=== PATIENT | female | born 1940 | race Caucasian/White ===

== ENCOUNTER 2017-08-10 12:34 | Inpatient (IN) | payer MEDICARE, OTHER ==
--- NOTE | 2017-08-03 15:19 | HP ---
CC: Kiko Weller DO * PREOPERATIVE HISTORY AND PHYSICAL: DATE OF ADMISSION: 08/10/17 This patient is scheduled for same-day surgery admission by Dr. Hensley on 08/10/17. ATTENDING SURGEON: Wilbur Hensley MD * (dictated by Mao Hoyos NP). CHIEF COMPLAINT: Umbilical hernia. HISTORY OF PRESENT ILLNESS: The patient is a 76-year-old female known to Dr. 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 She was doing well until about 1 month ago, when she noted a hard lump in the belly button area when she woke up in the morning. She described it as "about the size of a bar of soap." Subsequently, she had a followup with her primary care provider and was diagnosed with a hernia. She reports eating and drinking without any nausea or vomiting. She denies any constipation. In general, she is physically active doing water exercises 3 times a week and walking on alternate days. Dr. Hensley examined the patient and notes a well-healed upper midline scar with a reducible ventral incisional hernia supraumbilically with a defect that measures approximately 6 x 10 cm. It was associated with minimal tenderness. Dr. Hensley discussed the findings with the patient and has recommended laparoscopic/open combined approach for repair of the ventral incisional hernia with mesh. He explained to the patient this will allow intraperitoneal placement of the mesh and closure of the defect primarily. Dr. Hensley discussed the relevant risks, benefits, and alternatives, and today I reviewed the typical same-day surgery with typically an overnight stay and the expected postoperative care and recovery. The patient has had a chance to ask questions and stated that she understands the information and is satisfied with the answers given to her questions. She will sign surgical consent on the day of surgery. PAST MEDICAL HISTORY: Cecal volvulus; hypertension; osteoarthritis; anxiety and depression. PAST SURGICAL HISTORY: Right hemicolectomy with primary anastomosis for cecal volvulus in August [address] Hensley; tonsillectomy in childhood. MEDICATIONS: 1. Potassium, dose unspecified, 1 tablet daily. 2. Magnesium oxide supplement 1 tablet daily. 3. Super B-complex 1 tablet daily. 4. Amitriptyline 75 mg daily at bedtime. 5. Xanax 0.5 mg t.i.d. p.r.n. ALLERGIES: ALTEPLASE caused severe edema. FAMILY HISTORY: No known anesthesia complications, bleeding tendencies, or clotting disorders. SOCIAL HISTORY: She is ; she has never been a smoker. She drinks on average 14 glasses of wine per week and denies the use of other substances. She exercises regularly. REVIEW OF SYSTEMS: Constitutional: Denies any fevers, chills, excessive fatigue. Endocrine: No diabetes or thyroid disease. Hematologic: No easy bruising or bleeding. No previous blood transfusions. Respiratory: No dyspnea on exertion. No chronic cough. Cardiovascular: No anginal chest pain or palpitations. No history of deep vein thrombosis, but she did have a pulmonary embolism about 10 years ago. Gastrointestinal: No nausea, vomiting, diarrhea or constipation. No change in bowel habits. No heartburn. Genitourinary: No dysuria. Musculoskeletal: No joint pain or back pain. Neurologic: No headache or blurred vision or areas of focal weakness or numbness. General: The patient denies any previous anesthesia complications. PHYSICAL EXAMINATION GENERAL SURVEY: The patient is a 76-year-old female, well developed, well nourished, in no acute distress. VITAL SIGNS: Height 64 inches, weight 120 pounds, body mass index 20.6. Blood pressure 108/70, pulse 78 and regular, respiratory rate 16, temperature 97.1 tympanic. HEENT: Benign. NECK: Supple. No cervical lymphadenopathy. No thyromegaly. LUNGS: Breath sounds bilaterally clear and equal. HEART: Regular rate and rhythm. No murmurs or rubs appreciated. ABDOMEN: Examined standing and supine; well-healed upper midline scar; active bowel sounds. There is a reducible ventral incisional hernia supraumbilically with a defect that measures 6 cm x 10 cm. There is minimal tenderness. There are no other palpable masses or organomegaly. PELVIC AND RECTAL EXAMS: Deferred. EXTREMITIES: Warm without edema or skin ulcerations. NEUROLOGIC: Alert and oriented x3, steady gait. BACK: No CVA tenderness. SKIN: Warm, dry, and intact. IMPRESSION: Ventral incisional hernia. PLAN: Same-day surgery admission with overnight extension to Dr. Hensley' service on 08/10/17, for laparoscopic/open repair ventral incisional hernia with mesh. MAO HOYOS, COMPLIANCE EXAMINER [id number]/[facility] #: [id number] JESSICA
[~2017-08-10 12:34] MED LIST: Buffered Lidocaine 0.9% SYRIN* 5 ML/SYR SYRINGE INTRADERM ONE; Heparin VIAL(*) 5000 UNITS/ML VIAL (FIVE THOUSAND) ONE; Sodium Citrate/Citric Acid* 15 ML UDC ONE; Sodium Citrate/Citric Acid* 15 ML UDC PO ONE
[2017-08-10] MEDS ORDERED: Buffered Lidocaine 0.9% SYRIN* 5 ML/SYR SYRINGE ONE (12:35)
[2017-08-10] MEDS ORDERED: ceFAZolin 2 GM PREMIX (*) 50 ML IVPB ONE (12:35)
[2017-08-10] MEDS ORDERED: Bupivacaine 0.5% SDV PF* 30 ML VIAL ONE (15:47)
[2017-08-10] MEDS ORDERED: fentaNYL* 50 MCG/ML 2 ML VIAL (100 MCG VIAL) ONE ×3 (16:01→19:46)
[2017-08-10] MEDS ORDERED: Propofol* 10 MG/ML 20 ML BTL IV PUSH ONE ×2 (16:01→17:24)
[2017-08-10] MEDS ORDERED: Cisatracurium* 2 MG/ML MDV 5 ML ONE (16:01)
[2017-08-10] MEDS ORDERED: Lidocaine 2% PF * 5 ML VIAL ONE (16:01)
[2017-08-10] MEDS ORDERED: EPHEDrine (Pressors)* 50 MG/ML VIAL ONE (17:07)
[2017-08-10] MEDS ORDERED: Labetalol IV* 5 MG/ML 20 ML VIAL ONE ×2 (17:07→20:13)
[2017-08-10] MEDS ORDERED: Neostigmine Methylsulfate* 2 MG/2 ML SYRINGE ONE (18:05)
[2017-08-10] MEDS ORDERED: Glycopyrrolate IV* 0.2 MG/ML 1 ML VIAL ONE (18:05)
[2017-08-10] MEDS ORDERED: HYDROmorphone INJ* 1 MG/ML CARPUJECT SYRINGE IV PRN (18:26)
[2017-08-10] MEDS ORDERED: Docusate CAP* 100 MG PO PRN (18:26)
[2017-08-10] MEDS ORDERED: Acetaminophen TAB* 325 MG PO PRN (18:26)
[2017-08-10] MEDS ORDERED: Ondansetron INJ* 2 MG/ML VIAL IV PRN (18:26)
[2017-08-10] MEDS ORDERED: Zolpidem TAB* 5 MG PO PRN (18:31)
--- NOTE | 2017-08-10 18:32 | SURGPN ---
Brief Operative Note - Surgery Procedures: Pre-op dx: Ventral incisional hernia Post-op dx: same Procedure: Laparoscopic/open repair of ventral incisional hernia with mesh Anesthesia: GEN Huber Guardado Surgeon: Shellie Assist: Reinaldo MONTENEGRO EBL: 100 mL Specimen: none Fluids: NS 1L Drains: Mack Findings: none
[2017-08-10] MEDS: fentaNYL* 50 MCG/ML 2 ML VIAL (100 MCG VIAL) IV PRN ×6 (18:43→20:43)
[2017-08-10] MEDS ORDERED: HYDROmorphone INJ* 1 MG/ML CARPUJECT SYRINGE ONE (18:52)
[2017-08-10] MEDS: Amitriptyline TAB* 25 MG PO SCH (22:18)
[2017-08-10] MEDS: oxyCODONE/Acetamin 5/325 MG* TAB PO PRN (22:18)
[2017-08-10] MEDS: ALPRAZolam TAB* 0.5 MG PO PRN (23:23)
[2017-08-11] MEDS: oxyCODONE/Acetamin 5/325 MG* TAB PO PRN ×4 (02:26→19:38)
[2017-08-11] MEDS: Heparin VIAL(*) 5000 UNITS/ML VIAL (FIVE THOUSAND) SUBCUT SCH ×3 (06:32→21:58)
[2017-08-11] MEDS: ALPRAZolam TAB* 0.5 MG PO PRN ×3 (06:32→20:37)
[2017-08-11] MEDS: Omeprazole CAP* 20 MG PO SCH (06:32)
--- NOTE | 2017-08-11 07:03 | OP ---
CC: Kiko Weller DO * DATE OF OPERATION: 08/10/17 - ROOM #339 DATE OF : 44 SURGEON: Dr. Hensley. SENIOR ANALYTICAL CHEMIST: LORRAINE Pena ANESTHESIOLOGIST: Porfirio Guardado DO ANESTHESIA: General endotracheal. PRE-OP DIAGNOSIS: Ventral incisional hernia. POST-OP DIAGNOSIS: Ventral incisional hernia. OPERATIVE PROCEDURE: Open primary repair of ventral incisional hernia with laparoscopic repair of incisional hernia with mesh. ESTIMATED BLOOD LOSS: 100 mL. IV FLUIDS: 1 L of crystalloids. SPECIMENS: None. DRAINS: None. COMPLICATIONS: The instrument, needle, and sponge counts were correct. DESCRIPTION OF PROCEDURE: The patient was brought to the operating room and placed on the table supine. Sequential compression devices were placed in both lower extremities and general anesthesia was administered. She was administered appropriate antibiotics. She was positioned and padded appropriately. She was prepped and draped in the usual sterile fashion and a time-out was performed. Local anesthetic was infiltrated into the skin and soft tissue prior to making each incision. A midline incision was created through the previous scar and the peritoneal cavity was entered. The hernia sac was excised. The hernia defect measured approximately 6 cm transversely and 10 cm cephalocaudad. Lysis of adhesions was performed to free the omentum from the abdominal wall circumferentially and as well the hernia was located in the epigastrium approximately 3 cm from the xiphoid process. The falciform ligament was identified in the upper portion of the incision. The ligamentum teres was divided between Pamela clamps and ligated with 2-0 Polysorb. The edges of the facia were identified and the subcutaneous tissues were elevated off of the fascia on each side. The fascial edges were approximated in the midline with interrupted #1 Surgipro sutures with wapzan-ta-gjxnu sutures. Prior to tying these down, a hernia patch was selected. A 10 x 15 Ventralight mesh was placed into the peritoneal cavity and then the fascial sutures were tied down. A 5-mm trocar was between, the fascia were closed with sutures and then xdojvo-ki-znoqs insufflated into the peritoneal cavity and laparoscope introduced and then three 5-mm ports were placed, 1 in the right mid abdomen, 1 in the left mid abdomen, and 1 in the lower midline. Next, the tubing for the mesh echo positioning system was drawn and the echo positioning system was inflated and used to position the mesh to cover the area of the hernia with good overlap in all sides. The mesh was then secured with the capture tacker using a double-crown technique and attacking the mesh at 1 cm interval circumferentially. The echo positioning system was removed without difficulty through the inferior incision. Inspection revealed excellent hemostasis and excellent coverage of the closed mesh. Ports removed under direct visualization, carbon dioxide was released. The midline wound was irrigated and hemostasis was assured. A couple of quilting sutures were placed on each side to decrease the space and the 3-0 Polysorb was used for this. The 3-0 Polysorb was also used to approximate the subcutaneous tissue in the midline. [place] were then used to close the skin at all the incisions and dressings applied. The patient tolerated the procedure well and was extubated and transferred to Recovery in stable condition. [id number]/[facility] #: [id number] MTDD
[2017-08-11] MEDS ORDERED: oxyCODONE TAB* 5 MG TAB PO PRN (08:11)
--- NOTE | 2017-08-11 08:11 | PN ---
Progress Note - Progress Note Date of Service: 08/11/17 SOAP: Subjective: She slept poorly due to abdominal pain and anxiety. She has adequate control of both at this time. She has no N/V or appetite. Objective: Vital Signs Temp 99.5 F 08/11/17 03:11 Pulse 104 08/11/17 03:11 Resp 16 08/11/17 06:32 BP 131/79 08/11/17 03:11 Pulse Ox 93 08/11/17 04:09 Gen: lying in bed; NAD Abd: binder on; dressings c/d/i. Tender incisions; soft. Intake & Output 08/10/17 08/11/17 08/11/17 18:59 06:59 18:59 Intake Total 1300 1320 Output Total 1350 Balance 1300 -30 Weight 121 lb 6.4 oz Intake: IV Fluids 1300 700 LR 400 700 NS 900 Oral 620 Output: [place] 1350 Assessment: POD#1 s/p open/lap VIHR with mesh. Doing well. Plan: D/C napier. Diet as tolerated. PO/IV pain meds prn. Likely discharge tomorrow.
[2017-08-11] MEDS ORDERED: Ibuprofen TAB* 600 MG PO PRN (08:12)
[2017-08-11] MEDS: Amitriptyline TAB* 25 MG PO SCH (20:36)
[2017-08-12] MEDS: oxyCODONE/Acetamin 5/325 MG* TAB PO PRN (01:58)
[2017-08-12] MEDS: Heparin VIAL(*) 5000 UNITS/ML VIAL (FIVE THOUSAND) SUBCUT SCH (06:04)
[2017-08-12] MEDS: Omeprazole CAP* 20 MG PO SCH (06:04)
[2017-08-12 07:34] VITALS: BP 149/84
--- NOTE | 2017-08-13 01:11 | DS ---
CC: Kiko Weller DO, [facility] * DISCHARGE SUMMARY: DATE OF ADMISSION: 08/10/17 DATE OF DISCHARGE: 08/12/17 ATTENDING PHYSICIAN: Wilbur Hensley MD * (DICTATED BY LORRAINE HILL) HOSPITAL COURSE: Please refer to admission history and physical for admission details. The patient was taken to the operating room on 08/10/17 at which time she underwent open and laparoscopic approach for repair of a ventral incisional hernia with mesh by Dr. Hensley. She has had uncomplicated postoperative course with gradual improvement in pain and resumption in diet. As of the morning of discharge, she has not passed flatus or had bowel movement, but had normoactive bowel sounds and was tolerating diet. PHYSICAL EXAMINATION: Vital signs: Temperature 98.1, blood pressure 149/84, pulse ranging from 86 to 106, respirations 16, room air saturation 92% to 97%. General: Well-nourished, well-developed female in no acute distress. Skin: Warm and dry. Heart: Regular rate and rhythm. Lungs: Few basilar crackles on the right side. Remainder of the lung vera are clear (she was encouraged to continue to increase her ambulation and use her incentive spirometer at home). Abdomen: Bowel sounds are positive. Nondistended. Healing surgical incisions without evidence of infection. Nael intact. Dressings were changed. No active drainage, binder resecured. IMPRESSION: Status posts laparoscopic and open approach for repair of ventral hernia with mesh, doing well. PLAN: Home today. She already has an prescription for Percocet p.r.n. for stronger pain (she will use Tylenol and ibuprofen p.r.n. for coyc-kj-dgvngkyi pain). She has an appointment for followup in our office on 08/18/17. LORRAINE HILL [id number]/[facility] #: [id number] MTDD
== END 2017-08-12 12:00 | disposition home or self-care (01) | DRG 355 ==
LOC: OR 12:34 → SSU 21:59
PROVIDERS: ADMIT Surgery; ATTEND Surgery
PROC: 0WUF0JZ Supplement Abdominal Wall with Synthetic Substitute, Open Approach (ICD-10-PCS; 2017-08-10)
PROC: 0WUF4JZ Supplement Abdominal Wall with Synthetic Substitute, Percutaneous Endoscopic Approach (ICD-10-PCS; principal; 2017-08-10 14:30)
DX: K43.2 Incisional hernia without obstruction or gangrene (principal); I10 Essential (primary) hypertension; F32.9 Major depressive disorder, single episode, unspecified; F41.9 Anxiety disorder, unspecified; M19.90 Unspecified osteoarthritis, unspecified site; K21.9 Gastro-esophageal reflux disease without esophagitis; Z88.8 Allergy status to other drugs, medicaments and biological substances; Z86.711 Personal history of pulmonary embolism
CPT/HCPCS: A9270-GY; C1781; J0690; J1170; J1644; J2704; J3010

== ENCOUNTER 2020-01-09 10:15 | Emergency (ER) | payer MEDICARE, OTHER ==
--- NOTE | 2020-01-09 10:16 | UC ---
Headache HPI - HPI Summary HPI Summary: 79 yo female presents with headache. She tells me that yesterday morning she developed a "crushing" headache located on b/l temples. She states this is the second worst headache of her life -- the first worst headache of her life was when she had a CVA about 2 years ago. Previously she told me that she was on a plane with her coming back from [place] and developed a similar crushing headache. She stated to her "don't let me " and he gave her marijuana edible gummy bears for her pain and pt felt moderately better. The next day pt recalls feeling drowsy and like "she had a bad trip". She saw her eye doctor some time later for a routine exam and was noted to have gaze and visual deficits and referred to a neurologist. She states she saw a local neurologist (believes it was Dr. David) and was told that she had a stroke. Today she complains of a temporal headache that is "crushing" as noted above. Started yesterday morning around 0800 or 0900. She states she has double vision , but this is her baseline due to prior CVA as noted above. She endorses some shortness of breath currently that she attributes to "shallow breathing". She denies neck pain, chest pain, abdominal pain, n/v, dysuria, numbness or tingling. She states she has no strength deficits from prior CVA and only deficit is the visual change. She lives alone and drove herself to today. - History Of Current Complaint Stated Complaint: HEADACHE Time Seen by Provider: 01/09/20 10:16 Hx Obtained From: Patient Onset/Duration: Sudden Onset Onset Of Symptoms: Sudden Initially Headache Was: Severe Currently Pain Is: Severe Pain Intensity: 10 Pain Scale Used: 0-10 Numeric - Allergies/Home Medications Allergies/Adverse Reactions: Allergies Allergy/AdvReac Type Severity Reaction Status Date / Time alteplase Allergy Swelling Verified 08/07/19 12:28 Home Medications: Home Medications Gabapentin CAP(*) [Neurontin 300 CAP(*)] 300 mg PO BID 01/09/20 [History Confirmed 01/09/20] busPIRone TAB* [Buspar TAB*] 7.5 mg PO BID 01/09/20 [History Confirmed 01/09/20] PMH/Surg Hx/FS Hx/Imm Hx Cardiovascular History: Hypertension Neurological History: CVA Psychological History: Anxiety, Depression - Surgical History Surgical History: Yes Surgery Procedure, Year, and Place: tonsillectomy as a child, left breast biopsy -benign. VULVULUS REPAIR 2016-UMBILICAL HERNIA REPAIR 2017 - Family History Known Family History: Positive: Hypertension - Social History Lives: Alone Alcohol Use: Daily Alcohol Amount: 2 glassess of wine Substance Use Type: None Substance Use Comment - Amount & Last Used: unknown Smoking Status (MU): Never Smoked Tobacco - Immunization History Most Recent Influenza Vaccination: fall 2013 Most Recent Tetanus Shot: has had in past Most Recent Pneumonia Vaccination: unknown Review of Systems All Other Systems Reviewed And Are Negative: No Constitutional: Positive: Negative Skin: Positive: Negative Eyes: Positive: Negative ENT: Positive: Negative Respiratory: Positive: Shortness Of Breath Cardiovascular: Positive: Negative Gastrointestinal: Positive: Negative Genitourinary: Positive: Negative Motor: Positive: Negative Neurovascular: Positive: Negative Musculoskeletal: Positive: Negative Neurological/Mental Status: Positive: Headache Psychological: Positive: Negative Physical Exam - Summary Physical Exam Summary: GENERAL: NAD. WDWN. SKIN: No rashes, sores, ulcers, masses, lesions. HEENT: Head: AT/NC. No raccoon eyes or battles sign. Eyes: PERRLA. EOM intact, but delayed lateral gaze left eye - pt states is baseline from prior CVA. Ears: Hearing grossly normal. TMs intact, no bulging, erythema, or edema. No hemotympanum Nose: Nasal mucosa pink and moist. NTTP maxillary and frontal sinus. Throat: Posterior oropharynx without exudates, erythema, or tonsillar enlargement. Uvula midline. NECK: Supple. Nontender. FROM CHEST: CTAB. No r/r/w. No accessory muscle use. Breathing comfortably and in no distress. CV: RRR. Pulses intact. Brisk cap refill. ABDOMEN: Soft. NTTP. Bowel sounds present MSK: FROM in B/L UEs and LEs. Strength 5/5 right arm with 3/5 left arm. LEs 5/ 5 and symmetric. NEURO: A&Ox3. CN: II: Peripheral vera diminished and abnormal due to double vision. III, IV, : EOMI. PERRLA. V: Sensations intact and symmetric. Opens mouth and clenches teeth. VII: No facial asymmetry. Forehead wrinkles. Grins, shuts eyes, frowns, puffs cheeks. VIII: Hearing intact to finger rub. IX, X: Swallows and coughs. Uvula midline. XI: Shrugs shoulders. Turns head against resistance. XII: No tongue deviation. Kaltqd-jh-swur deviation using left arm/ hand. Normal speech. No facial drooping. PSYCH: Age appropriate behavior. Triage Information Reviewed: Yes Vital Signs: Vital Signs: Temp Pulse Resp BP Pulse Ox 98.1 F 92 18 147/100 97 01/09/20 10:30 01/09/20 10:30 01/09/20 10:30 01/09/20 10:30 01/09/20 10:30 Laboratory Tests 01/09/20 10:37 POC Glucose (mg/dL) 95 Amitriptyline TAB* 75 mg PO BEDTIME 08/24/12 [History Confirmed 01/09/20] Zolpidem Tartrate [Ambien] 0.5 tab PO BEDTIME PRN 08/03/17 [History Confirmed ] Gabapentin CAP(*) [Neurontin 300 CAP(*)] 300 mg PO BID 01/09/20 [History Confirmed 01/09/20] busPIRone TAB* [Buspar TAB*] 7.5 mg PO BID 01/09/20 [History Confirmed 01/09/20] Bystolic 5mg QD Vital Signs Reviewed: Yes Diagnostics - EKG Summary of EKG Findings: NSR 90bpm old Anterior infarct and old Inferior infarct. No acute change as read by Dr. Mcgill. Headache Course/Dx - Course Course Of Treatment: EKG as above. POC glucose 95. Neuro exam reveals weakness in left arm - pt states she is unaware of this and the only deficit from her prior CVA was double vision. Unable to perform full NIH as no flashcards available. Given her severe headache, age, hx of CVA, left arm weakness, and elevated BP today - concern from CVA. Unfortunately, her symptoms began about 24 hours ago, thus she is outside the TPA window. I discussed this with pt and she was agreeable to transfer to the hospital via EMS. EMS called and pt transferred in stable condition. Report called to Emery PETERS in the ED - Differential Dx/Diagnosis Provider Diagnosis: Headache Discharge ED - Sign-Out/Discharge Documenting (check all that apply): Patient Departure All imaging exams completed and their final reports reviewed: No Studies - Discharge Plan Condition: Fair Disposition: TRANS HIGHER LVL OF CARE FAC Referrals: Kiko Weller DO [Primary Care Provider] - - Billing Disposition and Condition Condition: FAIR Disposition: Trans Higher Lvl of Care Fac
[2020-01-09 10:37] VITALS: BP 147/100
== END 2020-01-09 11:00 | disposition short-term general hospital (02) ==
LOC: UCEAST 10:15
DX: R51 Headache (principal); R40.0 Somnolence; R06.02 Shortness of breath; I10 Essential (primary) hypertension; I69.998 Other sequelae following unspecified cerebrovascular disease; R53.1 Weakness; F41.9 Anxiety disorder, unspecified; F32.9 Major depressive disorder, single episode, unspecified; Z88.8 Allergy status to other drugs, medicaments and biological substances; Z79.899 Other long term (current) drug therapy; R42 Dizziness and giddiness; J45.909 Unspecified asthma, uncomplicated; Z86.718 Personal history of other venous thrombosis and embolism
CPT/HCPCS: 93005; 99213; G0463

== ENCOUNTER 2020-01-09 11:26 | Emergency (ER) | payer MEDICARE, OTHER ==
--- NOTE | 2020-01-09 11:35 | ED ---
Headache - HPI Summary HPI Summary: 79 year old F brought in by EMS to [facility] complains of gradually worsening headache x3 days. Patient reports dizziness. Patient denies visual changes, chest pain, shortness of breath, nausea/vomiting, abdominal pain, weakness in BLE and BUE and face, slurred speech. Patient states she has had similar in the past. The patient rates the pain 0/10 in severity. Symptoms aggravated by nothing. Symptoms alleviated by nothing. Medications reviewed. Not on anticoagulants. Hx hypertension. Hx headaches. Hx anxiety. Allergies noted. - History Of Current Complaint Stated Complaint: HEADACHE PER EMS Time Seen by Provider: 01/09/20 11:27 Hx Obtained From: Patient Onset/Duration: Started days ago - 3, Still Present Currently Pain Is: Current Pain Scale(0-10)= - 0 Timing: Constant Aggravating Factor: Nothing Allevating Factors: Nothing Associated Signs And Symptoms: Negative - visual changes, chest pain, shortness of breath, nausea/vomiting, abdominal pain, weakness in BLE and BUE and face, slurred speech, Dizziness - Allergies/Home Medications Allergies/Adverse Reactions: Allergies Allergy/AdvReac Type Severity Reaction Status Date / Time alteplase Allergy Swelling Verified 08/07/19 12:28 Home Medications: Home Medications ALPRAZolam ER (NF) 0.5 mg PO TID PRN MDD 3 tabs 01/09/20 [History Confirmed ] Acetaminophen TAB* [Tylenol TAB*] 650 mg PO Q6H PRN 01/09/20 [History Confirmed 01/09/20] Albuterol HFA INHALER* [Ventolin HFA Inhaler*] 1 - 2 puff INH QID PRN 01/09/20 [ History Confirmed 01/09/20] Amitriptyline TAB* [Elavil TAB*] 50 mg PO BEDTIME 01/09/20 [History Confirmed ] Aspirin EC TAB* [Ecotrin EC Low Dose 81 MG*] 81 mg PO DAILY 01/09/20 [History Confirmed 01/09/20] Atorvastatin* [Lipitor*] 20 mg PO DAILY 01/09/20 [History Confirmed 01/09/20] Calcium Carbonate [Calcium] 500 mg PO DAILY 01/09/20 [History Confirmed 01/09/20 ] Enoxaparin(*) [Lovenox(*)] 40 mg SUBCUT DAILY 01/09/20 [History Confirmed ] Gabapentin CAP(*) [Neurontin 100 mg CAP(*)] 200 mg PO QAM 01/09/20 [History Confirmed 01/09/20] Gabapentin CAP(*) [Neurontin 100 mg CAP(*)] 300 mg PO QPM 01/09/20 [History Confirmed 01/09/20] Magnesium Oxide TAB* [MagOx 400 TAB*] 800 mg PO DAILY 01/09/20 [History Confirmed 01/09/20] Multivitamins/Minerals TAB* [Theragran/minerals TAB*] 1 tab PO DAILY 01/09/20 [ History Confirmed 01/09/20] Nebivolol TAB (NF) [Bystolic TAB (NF)] 5 mg PO DAILY 01/09/20 [History Confirmed 01/09/20] [place]-3 Fatty Acids (Nf) [Fish Oil (NF)] 1,000 mg PO DAILY 01/09/20 [History Confirmed 01/09/20] Potassium Chlor TAB* [Klor Con ER TAB*] 20 meq PO DAILY 01/09/20 [History Confirmed 01/09/20] Sodium Chloride TAB* 3 gm PO DAILY 01/09/20 [History Confirmed 01/09/20] Vitamin B Complex TAB* [B Complex-50*] 1 tab PO DAILY 01/09/20 [History Confirmed 01/09/20] PMH/Surg Hx/FS Hx/Imm Hx Endocrine/Hematology History: Denies: Hx Diabetes, Hx Thyroid Disease Cardiovascular History: Reports: Hx Deep Vein Thrombosis, Hx Hypertension, Hx Syncope, Hx Valvular Heart Disease, Other Cardiovascular Problems/Disorders - STATES SHE HAS A HEART VALVE ISSUE. r/t PE - resolved Denies: Hx Pacemaker/ICD Respiratory History: Reports: Hx Asthma - resolved, Hx Pulmonary Embolism - 10 years ago Denies: Hx Chronic Obstructive Pulmonary Disease (COPD) GI History: Reports: Other GI Disorders - occassionally heartburn - takes tums Denies: Hx Ulcer History: Reports: Hx Renal Disease - right abnormality with f/u exams per pt. 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 VULVULUS REPAIR 2016-UMBILICAL HERNIA REPAIR 2017 Hx Anesthesia Reactions: No Infectious Disease History: Denies: Hx Clostridium Difficile, Hx Hepatitis, Hx Human Immunodeficiency Virus (HIV), Hx of Known/Suspected MRSA, Hx Shingles, Hx Tuberculosis, Hx Known/ Suspected VRE, Hx Known/Suspected VRSA, History Other Infectious Disease - Family History Known Family History: Positive: Hypertension, Other - sister biploar - Social History Alcohol Use: Daily Alcohol Amount: 2 glassess of wine Substance Use Type: Reports: None Hx Tobacco Use: No Smoking Status (MU): Never Smoked Tobacco Review of Systems Eyes: Negative - visual changes Negative: Chest Pain Negative: Shortness Of Breath Negative: Abdominal Pain, Vomiting, Nausea Neurological/Mental Status: Other - Dizziness Positive: Headache. Negative: Weakness, Slurred Speech All Other Systems Reviewed And Are Negative: Yes Physical Exam - Summary Physical Exam Summary: Constitutional: Well-developed, Well-nourished, Alert. (-) Distressed Skin: Warm, Dry HENT: Normocephalic; Atraumatic Eyes: Conjunctiva normal Neck: Musculoskeletal ROM normal neck. (-) JVD, (-) Stridor, (-) Tracheal deviation Cardio: Rhythm regular, rate normal, Heart sounds normal; Intact distal pulses; The pedal pulses are 2+ and symmetric. Radial pulses are 2+ and symmetric. (-) Murmur Pulmonary/Chest wall: Effort normal. (-) Respiratory distress, (-) Wheezes, (-) Rales Abd: Soft, (-) tenderness, (-) Distension, (-) Guarding, (-) Rebound Musculoskeletal: (-) Edema Lymph: (-) Cervical adenopathy Neuro: Alert, Oriented x3 Psych: Mood and affect Normal GCS: 15 Triage Information Reviewed: Yes Vital Signs Reviewed: Yes Procedures - Sedation Patient Received Moderate/Deep Sedation with Procedure: No Diagnostics - Laboratory Result Diagrams: 01/09/20 11:46 01/09/20 11:46 Lab Statement: Any lab studies that have been ordered have been reviewed, and results considered in the medical decision making process. - CT Brain CT Interpretation Completed By: Radiologist Summary of CT Findings: 1. No acute intracranial abnormality. 2. Old left basal ganglia infarct. 3. Mild chronic small vessel ischemic disease is likely. ED physician has reviewed this report. - EKG 1159 Cardiac Rate: NL - 89 BPM EKG Rhythm: Sinus Rhythm Summary of EKG Findings: No ischemic changes. ED physician has reviewed and interpreted this EKG Headache Course/Dx - Course Course Of Treatment: 79 y/o F with hx headaches and hx anxiety c/o gradually worsening headache and dizziness x3 days. Physical exam unremarkable. Bloodwork results with no significant abnormalities except for MCV 103, MCH 36, platelets 125, MPV 6.7, chloride 98, creatinine 0.97, glucose 106, AST 49. CT Brain shows 1. No acute intracranial abnormality. 2. Old left basal ganglia infarct. 3. Mild chronic small vessel ischemic disease is likely. EKG shows sinus rhythm 89 BPM and no ischemic changes. In the ED course, patient was given Tylenol. Patient with progressively worsening headache 3 days, gradual onset, no trauma. Not on anticoagulants. CT head : NAD. Patient ambulated around the ED, steady gait, feels well for discharge home. Patient notes that her last June and she has had increased anxiety, notes that her headaches are "largely due to anxiety". Sees her PCP for medical management of her anxiety. Patient will be discharged home with follow up from primary care provider in 1-2 days. Patient was instructed to return to Emergency Department for new or worsening symptoms. Patient understands and is agreeable to this plan. - Diagnoses Provider Diagnoses: Headache, Anxiety Discharge ED - Sign-Out/Discharge Documenting (check all that apply): Patient Departure - Discharge Plan Condition: Stable Disposition: HOME Patient Education Materials: Anxiety (ED), General Headache (ED) Referrals: Kiko Weller DO [Primary Care Provider] - 1 Day Additional Instructions: Follow up with your primary care provider in 1-2 days. Return to the Emergency Department for new or worsening symptoms. - Billing Disposition and Condition Condition: STABLE Disposition: Home - Attestation Statements Document Initiated by Scribe: Yes Documenting Scribe: Sosa Hernandez Provider For Whom Scribe is Documenting (Include Credential): Kameron Clay DO Scribe Attestation: I, Sosa Hernandez, scribed for Kameron Clay DO on 01/09/20 at 1300. Scribe Documentation Reviewed: Yes Provider Attestation: The documentation as recorded by the scribe, Sosa Hernandez accurately reflects the service I personally performed and the decisions made by me, Kameron Clay DO Status of Scribe Document: Viewed
--- OUTSIDE RECORDS SUMMARY | 2020-01-09 11:44 | XMS REPORT | Continuity of Care Document ---
:1940 External Reference #:[id number] Author Name Kiko Weller D.O. Address [address] [place] [id number] Care Team Providers Name Role Phone Malena Monge MD - Psychiatry Care Team Information Clinical Laboratory Manager [facility] - Cardiovascular Care Team Information Clinical Laboratory Manager [phone] Disease Abimael Sanford MD DMD - Oral and Care Team Information Clinical Laboratory Manager [facility] - Psychiatric Care Team Information Clinical Laboratory Manager [facility] John Cummings MD - Hematology & Care Team Information Clinical Laboratory Manager Oncology Problems Active Problems Provider Date Essential hypertension Onset: 04/07/2006 Intrinsic asthma without status asthmaticus Mai Ya MD Onset: 2005 Knee joint effusion Mai Ya MD Onset: 04/08/2006 Hand joint pain Mai Ya MD Onset: 04/08/2006 Multiple joint pain Mai Ya MD Onset: 04/16/2011 Pure hypercholesterolemia Mai Ya MD Onset: 04/16/2011 Personal History Of Pulmonary Embolism Mai Ya MD Onset: 05/02/2015 Arthralgia of the pelvic region and thigh Kiko Weller D.O. Onset: 2015 Hypo-osmolality and or hyponatremia Kiko Weller D.O. Onset: 09/15/2016 Edema Kiko Weller D.O. Onset: 08/25/2018 Social History Type Date Description Comments Sex Unknown Tobacco Use Start: Unknown End: Does Not Smoke Unknown Cigarettes ETOH Use 08/08/2016 Currently consumes 3 glasses of alcohol wine/night Recreational Drug Use Never Used Drugs Tobacco Use Start: Unknown Patient has never smoked Smoking Status Reviewed: 11/27/19 Patient has never smoked Allergies, Adverse Reactions, Alerts Active Allergies Reaction Severity Comments Date altaplace severe itch 08/26/2006 Medications Active Medications SIG Qnty Indications Ordering Date Provider Gabapentin 1 by mouth twice 180caps G90.09 Kiko Weller, 08/14/2019 300mg a day D.O. Capsules Zolpidem Tartrate 1 by mouth at 30tabs G47.00 Kiko Weller, 04/12/2019 5mg night for sleep. D.O. Tablets as needed code a Hydroxyzine HCL 1 tab by mouth 14tabs Kiko Weller, 04/03/2019 10mg every 6 hours as D.O. Tablets needed anxiety Buspirone HCL take 1 tablet by 180tabs I63.9 Kiko Weller, 05/24/2018 7.5mg mouth twice a day D.O. Tablets Atorvastatin Calcium Take 1 Tablet By 90tabs Kiko Weller, 03/25/2018 Mouth Every Day D.O. 20mg Tablets Aspirin Adult Low 1 by mouth every Unknown 01/24/2018 Dose day 81mg Tablets DR Pereira take 1 tablet by 90tabs I10 Kiko Weller, 10/26/2017 5mg Tablets mouth once daily D.O. for high blood pressure Amitriptyline HCL 2 by mouth every 180tabs R51 Kiko Weller, 06/02/2017 50mg night for D.O. Tablets headaches Alprazolam take 1 tablet by 90tabs F41.9 Kiko Weller, 05/31/2017 0.5mg mouth up to three D.O. Tablets times a day if needed for anxiety maximum daily dose of 3 Sodium Chloride take 2 tabs 180tabs Kiko Weller, 10/28/2016 1gm daily. D.O. Tablets Magnesium Oxide 2 daily 360tabs F10.10 Kiko Weller, 08/20/2016 400mg D.O. Tablets E87.1 I10 Vitamin B Complex 1 by mouth once 90tabs Kiko Weller, 08/04/2016 daily D.O. Tablets Proair HFA inhale 1 to 2 puffs 17gm Kiko Weller, 05/14/2015 108(90Base) by mouth four times D.O. mcg/Act Aerosol a day if needed Acetaminophen ER 1 tab by mouth every Unknown 04/05/2015 650mg 6 hours as needed Tablets ER for pain Potassium Chloride Take 1 Tablet By 90tabs E87.6 Kiko Weller, 2014 Carmita ER Mouth Daily D.O. 20Meq Tablets ER Multi For Her daily 90tabs Kiko Weller, 07/05/2013 Tablets D.O. Lovenox 0.4 cubic 10doses Z86.718 Nicola Cueto, 10/18/2009 40mg/0.4ML centimeters sc on M.D. Solution day before, day of and day after long flights; to prevent d.v.t. Fish Oil daily Unknown Calcium daily Unknown Tablets Immunizations CPT Code Status Date Vaccine Lot # [id number] Given 08/14/2019 Influenza Vaccine, Inactivated, Subunit, [id number] Adjuvanted, [facility] 500[facility] Given 08/25/2018 Influenza Vaccine, Inactivated, Subunit, [id number] Adjuvanted, For [facility] 42719 Given 01/03/2018 Typhoid Vaccine Oral 78302 Given 07/22/2017 Influenza Vaccine Split Virus Preservative Free Im [id number] Use (hi-dose) 22508 Given 08/08/2016 Influenza Vaccine Split Virus Preservative Free Im [id number] Use (hi-dose) 00164 Given 04/07/2016 Prevnar 13 [id number] 34890 Given 08/26/2015 Influenza Vaccine Split Virus Preservative Free Im [id number] Use (hi-dose) 24450 Given 07/25/2014 Influenza Virus Vaccine, Quadrivalent, Split, [id number] Preservative Free 32192 Given 04/02/2014 Adacel or Boostrix, TDaP [id number] 79367 Given 08/11/2013 Flu, Split Virus 3Yrs [id number] 36845 Given 08/15/2012 Flu, Split Virus 3Yrs [id number] 02064 Given 08/12/2009 Flu, Split Virus 3Yrs 32655 Given 10/27/2007 Pneumococcal Immunization 13807 Given 10/01/2007 Zostavax 73093 Given 10/01/2007 Flu, Split Virus 3Yrs [id number] 28164 Given 07/23/2005 Flu, Split Virus 3Yrs 16923 Given 07/23/2003 DO Not Use- use U-code instead -Unlisted Immunization Procedure 70222 Given 07/23/2003 Td Immunization 51481 Given 01/20/1998 DO Not Use- use U-code instead -Unlisted Immunization Procedure 76445 Given 01/20/1998 Hep A, Adult 88726 Given 03/22/1997 DO Not Use- use U-code instead -Unlisted Immunization Procedure 10665 Given 03/22/1997 Hep A, Adult 02835 Given 04/22/1995 Td Immunization 44851 Given 04/22/1995 Poliomyelitis Immunization Vital Signs Date Vital Result Comment 11/27/2019 10:06am BP Systolic 142 mmHg BP Diastolic 88 mmHg Weight 126.00 lb 09/19/2019 2:24pm BP Systolic 152 mmHg BP Diastolic 92 mmHg BP Systolic Recheck 135 mmHg BP Diastolic Recheck 89 mmHg Weight 121.50 lb Results Test Acquired Date Facility Test Result H/L Range Note CBC Auto 11/27/2019 [facility] White Blood 3.6 10^3/uL Normal 3.5- 10.8 Diff [phone] Count Red Blood Count 3.46 10^6/uL Low 3.70-4.87 Hemoglobin 12.2 g/dL Normal 12.0-16.0 Hematocrit 35 % Normal 35-47 Mean Corpuscular Volume 102 fL High 80-97 Mean Corpuscular Hemoglobin 35 pg High 27-31 Mean Corpuscular HGB Conc 35 g/dL Normal 31-36 Red Cell Distribution Width 14 % Normal 10-15 Platelet Count 129 10^3/uL Low 150-450 Mean Platelet Volume 6.7 fL Low 7.4-10.4 Abs Neutrophils 1.9 10^3/uL Normal 1.5-7.7 Abs Lymphocytes 1.2 10^3/uL Normal 1.0-4.8 Abs Monocytes 0.3 10^3/uL Normal 0-0.8 Abs Eosinophils 0.2 10^3/uL Normal 0-0.6 Abs Basophils 0.0 10^3/uL Normal 0-0.2 Abs Nucleated RBC 0.0 10^3/uL Granulocyte % 53.1 % Lymphocyte % 32.9 % Monocyte % 8.1 % Eosinophil % 4.9 % Basophil % 1.0 % Nucleated Red Blood Cells % 0.0 Comp Metabolic Panel 11/27/2019 [facility] Sodium 136 mmol/L Normal 135-145 [phone] Potassium 4.7 mmol/L Normal 3.5-5.0 Chloride 100 mmol/L Low 101-111 Co2 Carbon Dioxide 29 mmol/L Normal 22-32 Anion Gap 7 mmol/L Normal 2-11 Glucose 109 mg/dL High 70-100 Blood Urea Nitrogen 11 mg/dL Normal 6-24 Creatinine 0.92 mg/dL Normal 0.51-0.95 BUN/Creatinine Ratio 12.0 Normal 8-20 Calcium 9.8 mg/dL Normal 8.6-10.3 Total Protein 6.5 g/dL Normal 6.4-8.9 Albumin 4.5 g/dL Normal 3.2-5.2 Globulin 2.0 g/dL Normal 2-4 Albumin/Globulin Ratio 2.3 Normal 1-3 Total Bilirubin 0.60 mg/dL Normal 0.2-1.0 Alkaline Phosphatase 70 U/L Normal 34-104 Alt 35 U/L Normal 7-52 Ast 49 U/L High 13-39 Egfr Non- 59.2 >60 Egfr 71.6 >60 1 Laboratory test 11/27/2019 [facility] Vitamin B12 519 pg/mL Normal 180-914 2 finding [phone] Magnesium 2.1 mg/dL Normal 1.9-2.7 TSH (Thyroid Stim Horm) 5.26 mcIU/mL Normal 0.34-5.60 Erythrocyte Sed Rate 5 mm/Hr Normal 0-29 C Reactive Protein < 1.00 mg/L Normal <8.01 Basic Metabolic Panel 07/31/2019 [facility] Sodium 139 mmol/L Normal 135-145 3 [phone] Potassium 4.6 mmol/L Normal 3.5-5.0 Chloride 103 mmol/L Normal 101-111 Co2 Carbon Dioxide 29 mmol/L Normal 22-32 Anion Gap 7 mmol/L Normal 2-11 Glucose 94 mg/dL Normal 70-100 Blood Urea Nitrogen 16 mg/dL Normal 6-24 Creatinine 0.90 mg/dL Normal 0.51-0.95 BUN/Creatinine Ratio 17.8 Normal 8-20 Calcium 10.3 mg/dL Normal 8.6-10.3 Egfr Non- 60.9 >60 Egfr 73.7 >60 4 1 Because ethnic data is not always readily available, this report includes an eGFR for both -Americans and non- Americans. The National Kidney Disease Education Program (NKDEP) does not endorse the use of the MDRD equation for patients that are not between the ages of 18 and 70, are , have extremes of body size, muscle mass, or nutritional status, or are non- or non-. According to the National Kidney Foundation, irrespective of diagnosis, the stage of the disease is based on the level of kidney function: Stage Description GFR(mL/min/1.73 m(2)) 1 Kidney damage with normal or decreased GFR 90 2 Kidney damage with mild decrease in GFR 60-89 3 Moderate decrease in GFR 30-59 4 Severe decrease in GFR 15-29 5 Kidney failure <15 (or dialysis) 2 Normal Range 180 to 914 Indeterminate Range 145 to 180 Deficient Range <145 3 FASTING 4 Because ethnic data is not always readily available, this report includes an eGFR for both -Americans and non- Americans. The National Kidney Disease Education Program (NKDEP) does not endorse the use of the MDRD equation for patients that are not between the ages of 18 and 70, are , have extremes of body size, muscle mass, or nutritional status, or are non- or non-. According to the National Kidney Foundation, irrespective of diagnosis, the stage of the disease is based on the level of kidney function: Stage Description GFR(mL/min/1.73 m(2)) 1 Kidney damage with normal or decreased GFR 90 2 Kidney damage with mild decrease in GFR 60-89 3 Moderate decrease in GFR 30-59 4 Severe decrease in GFR 15-29 5 Kidney failure <15 (or dialysis) Procedures Date Code Description Status 08/05/2018 07903577 Mammogram Completed 09/22/2010 [id number] Colonoscopy Completed Medical Devices Description No Information Available Encounters Type Date Location Provider Dx Diagnosis Office Visit 11/27/2019 Main Office Kiko Weller, E87.1 Hypo-osmolality and 9:45a D.O. 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 hypertension I63.9 Cerebral infarction, unspecified F41.1 Generalized anxiety disorder Assessments Date Code Description Provider 11/27/2019 E87.1 Hypo-osmolality and hyponatremia Kiko Weller D.OLaura 11/27/2019 F41.9 Anxiety disorder, unspecified Kiko Weller D.O. 11/27/2019 M17.0 Bilateral primary osteoarthritis of knee Kiko Weller D.OLaura 11/27/2019 M79.10 Myalgia, unspecified site Kiko Weller D.O. 11/27/2019 Z01.818 Encounter for other preprocedural examination Kiko Weller D.OLaura 11/27/2019 I10 Essential (primary) hypertension Kiko Weller D.O. 11/27/2019 F41.1 Generalized anxiety disorder Kiko Weller D.O. 11/27/2019 Z63.4 Disappearance and of family member GabrielavKiko mchugh D.O. 11/27/2019 G47.00 Insomnia, unspecified Kiko Weller D.O. 11/27/2019 I63.9 Cerebral infarction, unspecified SopKiko pizarro, D.O. 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 neuropathy 09/19/2019 I63.9 Cerebral infarction, unspecified SopavkLeion, D.O. 09/19/2019 I10 Essential (primary) hypertension Kiko Weller, D.O. 09/19/2019 E87.1 Hypo-osmolality and hyponatremia Kiko Weller D.O. 09/19/2019 F41.1 Generalized anxiety disorder Kiok Weller D.O. 09/19/2019 Z63.4 Disappearance and of family member Kiko Weller D.O. 09/19/2019 F41.9 Anxiety disorder, unspecified IlyakKiko, D.O. 09/19/2019 G47.00 Insomnia, unspecified Lei Welleron, D.O. 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 neuropathy 08/14/2019 I63.9 Cerebral infarction, unspecified Kiko Weller, D.O. 08/14/2019 I10 Essential (primary) hypertension Kiko Weller D.O. 08/14/2019 E87.1 Hypo-osmolality and hyponatremia Kiko Weller, D.O. 08/14/2019 F41.1 Generalized anxiety disorder Kiko Weller, D.O. 08/14/2019 Z23 Encounter for immunization Kiko Weller D.O. 08/14/2019 Z41.8 Encounter for other procedures for purposes Kiko Weller D.O. other than remedying health state 08/14/2019 Z63.4 Disappearance and of family member Kiko Weller D.O. 06/15/2019 I10 Essential (primary) hypertension Kiko Weller Yanira 06/15/2019 I63.9 Cerebral infarction, unspecified Kiko Weller D.O. 06/15/2019 F41.1 Generalized anxiety disorder Kiko Weller D.O. Plan of Treatment Future Appointment(s):05/09/2020 2:00 pm - Kiko Weller D.O. at [facility]/27/2019 - Kiko Weller D.O.E87.1 Hypo-osmolality and nudxyfovqsydI83.9 Anxiety disorder, unspecifiedFollow up:1mo recheck anxiety, xintllkmioD92.0 Bilateral primary osteoarthritis of kneeM79.10 Myalgia, unspecified siteZ01.818 Encounter for other preprocedural lufhxuzwaobX66 Essential (primary) ctrdarqigpxdB46.1 Generalized anxiety zmudooqiR95.4 Disappearance and of family zogijxE21.00 Insomnia, vgimvonsobiA27.9 Cerebral infarction, unspecified Functional Status Description No Information Available Mental Status Description No Information Available Referrals Description No Information Available
[2020-01-09 11:56] LABS: ABS Eosinophils 0.1 10^3/ul (0-0.6); ABS Lymphocytes 1.2 10^3/ul (1.0-4.8); ABS Monocytes 0.2 10^3/ul (0-0.8); ABS Neutrophils 2.2 10^3/ul (1.5-7.7); Eosinophil % 1.7 %; Hematocrit 38 % (35-47); Hemoglobin 13.1 g/dL (12.0-16.0); Lymphocyte % 31.6 %; Mean Corpuscular HGB Conc 34 g/dL (31-36); Mean Corpuscular Hemoglobin 36 pg (27-31); Mean Corpuscular Volume 103 fL (80-97); Mean Platelet Volume 6.7 fL (7.4-10.4); Platelet Count 125 10^3/uL (150-450); Red Cell Distribution Width 14 % (10-15); White Blood Count 3.7 10^3/uL (3.5-10.8)
[2020-01-09] MEDS ORDERED: Acetaminophen TAB* 325 MG PO ONE (11:56)
[2020-01-09 12:15] LABS: Troponin I 0.01 ng/mL (<0.03)
[2020-01-09 12:27] LABS: Albumin 4.6 g/dL (3.2-5.2); Calcium 9.6 mg/dL (8.6-10.3); Potassium 4.5 mmol/L (3.5-5.0); Total Bilirubin 0.7 mg/dL (0.2-1.0)
[2020-01-09 12:33] LABS: Albumin/Globulin Ratio 1.8 (1-3); BUN/Creatinine Ratio 13.4 (8-20); EGFR African American 67.4 (>60); EGFR Non-African American 55.7 (>60); Globulin 2.6 g/dL (2-4); Total Protein 7.2 g/dL (6.4-8.9)
[2020-01-09 13:07] VITALS: BP 150/110
== END 2020-01-09 13:01 | disposition home or self-care (01) ==
LOC: ED 11:26
DX: R51 Headache (principal); F41.9 Anxiety disorder, unspecified; R42 Dizziness and giddiness; I10 Essential (primary) hypertension; J45.909 Unspecified asthma, uncomplicated; F32.9 Major depressive disorder, single episode, unspecified; Z86.718 Personal history of other venous thrombosis and embolism; Z79.01 Long term (current) use of anticoagulants; Z79.899 Other long term (current) drug therapy; Z86.73 Personal history of transient ischemic attack (TIA), and cerebral infarction without residual deficits; Z88.8 Allergy status to other drugs, medicaments and biological substances
CPT/HCPCS: 36415; 70450; 80053; 84484; 85025; 93005; 99283; A9270-GY

== ENCOUNTER 2020-05-19 19:03 | Inpatient (IN) ==
[2020-05-19] MEDS ORDERED: NS 0.9% 1000 ml BAG 1,000 ML IV ONE (19:05)
[2020-05-19 19:31] LABS: ABS Eosinophils 0.1 10^3/ul (0-0.6); ABS Lymphocytes 0.9 10^3/ul (1.0-4.8); ABS Monocytes 0.3 10^3/ul (0-0.8); Eosinophil % 1.8 %; Hematocrit 35 % (35-47); Hemoglobin 12.2 g/dL (12.0-16.0); Lymphocyte % 23.2 %; Mean Corpuscular HGB Conc 35 g/dL (31-36); Mean Corpuscular Hemoglobin 36 pg (27-31); Mean Corpuscular Volume 102 fL (80-97); Mean Platelet Volume 6.4 fL (7.4-10.4); Nucleated Red Blood Cells % 0.1; Platelet Count 113 10^3/uL (150-450); Red Blood Count 3.42 10^6 /uL (3.70-4.87); Red Cell Distribution Width 13 % (10-15); White Blood Count 3.8 10^3/uL (3.5-10.8)
[2020-05-19 19:36] LABS: Activated Partial Thrombo Time 26.9 seconds (26.0-38.0); INR 0.97 (0.82-1.09)
[2020-05-19 19:49] LABS: ALT 43 U/L (7-52); AST 72 U/L (13-39); Albumin 4.1 g/dL (3.2-5.2); Albumin/Globulin Ratio 1.5 (1-3); Alkaline Phosphatase 128 U/L (34-104); Anion Gap 12 mmol/L (2-11); BUN/Creatinine Ratio 7.5 (8-20); Blood Urea Nitrogen 5 mg/dL (6-24); CO2 Carbon Dioxide 23 mmol/L (22-32); Calcium 9.6 mg/dL (8.6-10.3); Chloride 89 mmol/L (101-111); Cholesterol 157 mg/dL; EGFR African American 103.3 (>60); EGFR Non-African American 85.3 (>60); Globulin 2.8 g/dL (2-4); Glucose 92 mg/dL (70-100); HDL Cholesterol 90.1 mg/dL; LDL Cholesterol 53 mg/dL; Potassium 3.7 mmol/L (3.5-5.0); Sodium 124 mmol/L (135-145); Total Protein 6.9 g/dL (6.4-8.9); Triglycerides 70 mg/dL
[2020-05-19 19:50] LABS: Troponin I 0.01 ng/mL (<0.03)
[2020-05-19 20:22] LABS: Alcohol, S < 10 mg/dL (<10)
[2020-05-19 20:23] LABS: Urine Appearance Clear; Urine Bilirubin Negative (Negative); Urine Blood Negative (Negative); Urine Color Yellow; Urine Glucose Negative (Negative); Urine Ketones Trace (Negative); Urine Nitrite Positive (Negative); Urine Protein Negative (Negative); Urine Specific Gravity 1.002 (1.010-1.030); Urine Urobilinogen Negative (Negative)
[2020-05-19 20:24] LABS: Urine Bacteria 1+ (Absent); Urine Red Blood Cell Absent (Absent); Urine White Blood Cell Trace(0-5/hpf) (Absent)
[2020-05-19 20:25] LABS: Magnesium 1.6 mg/dL (1.9-2.7)
[2020-05-19] MEDS ORDERED: Magnesium Sulfate IV 1GM/100ML 1 GM/100 ML BAG IV ONE (20:52)
[2020-05-19] MEDS ORDERED: Lorazepam PYXIS KEY PRN (21:04)
[2020-05-19] MEDS ORDERED: Thiamine 100 MG/ML 2 ml VIAL 100 MG, Folic Acid 1 MG, Multiple Vitamin IV ADULT 10 ML i... IV ONE (21:04)
[2020-05-19] MEDS ORDERED: LORazepam 2 mg VIAL 1 ml IV PUSH ONE (21:04)
[2020-05-19] MEDS ORDERED: Magnesium Sulfate 2 gm BAG 2 GM/50 ML BAG IVPB ONE (22:07)
[2020-05-19] MEDS ORDERED: hydrALAZINE 20 mg/ml 1 ML Vial IV IV SLOW PU PRN (22:07)
[2020-05-19] MEDS ORDERED: Ondansetron 4 mg VIAL 2 MG/ML 2 ml VIAL IV PRN (22:07)
[2020-05-19] MEDS ORDERED: Iodixanol (CONTRAST) 320 MG/ML 100 ML SDV IV ONE (22:25)
[2020-05-19] MEDS ORDERED: LORazepam 1 mg TAB (*) PO SCH (23:00)
[2020-05-19] MEDS ORDERED: NS 0.9% 500 ml BAG 500 ML IV SCH (23:00)
[2020-05-19] MEDS: Aspirin EC 81 mg TAB.EC (enteric coated) PO SCH (23:59)
[2020-05-20] MEDS ORDERED: cefTRIAXone 1 gm/50 mL NS BAG 1 GM/50 ML BAG IVPB SCH
[2020-05-20] MEDS: Heparin 5000 UNITS/ML VIAL(*) 1 ml vial SUBCUT SCH ×2 (00:01→09:24)
[2020-05-20] MEDS: CMCS:Nebivolol 2.5 mg TAB (NF) PO SCH ×2 (00:42→09:21)
[2020-05-20] MEDS ORDERED: NS 0.9% 500 ml BAG 500 ML IV SCH (02:59)
[2020-05-20 03:01] LABS: BUN/Creatinine Ratio 7.3 (8-20); Calcium 8.4 mg/dL (8.6-10.3); EGFR African American 129.7 (>60); EGFR Non-African American 107.2 (>60); Potassium 3.1 mmol/L (3.5-5.0)
[2020-05-20] MEDS ORDERED: Potassium Chlor 20 meq TAB.ER PO ONE ×2 (03:14→07:37)
[2020-05-20 04:50] LABS: ABS Eosinophils 0.1 10^3/ul (0-0.6); ABS Lymphocytes 0.9 10^3/ul (1.0-4.8); ABS Monocytes 0.3 10^3/ul (0-0.8); Eosinophil % 3.2 %; Hematocrit 32 % (35-47); Hemoglobin 11.1 g/dL (12.0-16.0); Lymphocyte % 26.2 %; Mean Corpuscular HGB Conc 35 g/dL (31-36); Mean Corpuscular Hemoglobin 36 pg (27-31); Mean Corpuscular Volume 103 fL (80-97); Mean Platelet Volume 6.5 fL (7.4-10.4); Platelet Count 108 10^3/uL (150-450); Red Blood Count 3.05 10^6 /uL (3.70-4.87); Red Cell Distribution Width 13 % (10-15); White Blood Count 3.6 10^3/uL (3.5-10.8)
[2020-05-20 04:54] LABS: INR 0.97 (0.82-1.09)
[2020-05-20 05:05] LABS: Albumin 3.5 g/dL (3.2-5.2); Albumin/Globulin Ratio 1.5 (1-3); BUN/Creatinine Ratio 4.9 (8-20); Calcium 8.6 mg/dL (8.6-10.3); EGFR African American 115.1 (>60); EGFR Non-African American 95.1 (>60); Globulin 2.3 g/dL (2-4); HDL Cholesterol 73.3 mg/dL; Indirect Bilirubin 0.3 mg/dL (0.3-1.0); Potassium 3.4 mmol/L (3.5-5.0); Total Bilirubin 0.4 mg/dL (0.2-1.0); Total Protein 5.8 g/dL (6.4-8.9)
[2020-05-20] MEDS ORDERED: Potassium Chlor 20 meq TAB.ER PO SCH (09:00)
[2020-05-20] MEDS ORDERED: Multivitamins/Minerals TAB PO SCH ×2 (09:00)
[2020-05-20] MEDS ORDERED: Calcium Carb 1250 mg TAB (500 mg elemental calcium) PO SCH (09:00)
[2020-05-20] MEDS: Aspirin EC 81 mg TAB.EC (enteric coated) PO SCH (09:12)
[2020-05-20 19:36] VITALS: BP 144/84
== END 2020-05-20 18:25 | disposition home or self-care (01) | DRG 69 ==
LOC: ED 19:03 → MEDTELE 22:39
PROVIDERS: ADMIT Internal Medicine; ATTEND Internal Medicine

== ENCOUNTER 2021-02-13 16:32 | Observation (INO) ==
[2021-02-13 18:53] LABS: ABS Eosinophils 0.1 10^3/ul (0-0.6); ABS Lymphocytes 1.6 10^3/ul (1.0-4.8); ABS Monocytes 0.3 10^3/ul (0-0.8); ABS Neutrophils 4.6 10^3/ul (1.5-7.7); Hematocrit 39 % (35-47); Hemoglobin 13.1 g/dL (12.0-16.0); Lymphocyte % 24.3 %; Mean Corpuscular HGB Conc 34 g/dL (31-36); Mean Corpuscular Hemoglobin 35 pg (27-31); Mean Corpuscular Volume 103 fL (80-97); Mean Platelet Volume 6.5 fL (7.4-10.4); Nucleated Red Blood Cells % 0.1; Platelet Count 174 10^3/uL (150-450); Red Blood Count 3.76 10^6 /uL (3.70-4.87); Red Cell Distribution Width 13 % (10-15); White Blood Count 6.6 10^3/uL (3.5-10.8)
[2021-02-13 19:13] LABS: Troponin I 0.01 ng/mL (<0.03)
[2021-02-13 19:15] LABS: ALT 30 U/L (7-52); AST 39 U/L (13-39); Albumin 4.7 g/dL (3.2-5.2); Albumin/Globulin Ratio 1.6 (1-3); Alkaline Phosphatase 91 U/L (34-104); Anion Gap 15 mmol/L (2-11); BUN/Creatinine Ratio 15.6 (8-20); Blood Urea Nitrogen 12 mg/dL (6-24); CO2 Carbon Dioxide 23 mmol/L (22-32); Calcium 9.8 mg/dL (8.6-10.3); Chloride 94 mmol/L (101-111); EGFR African American 87.7 (>60); EGFR Non-African American 72.5 (>60); Glucose 110 mg/dL (70-100); Magnesium 1.8 mg/dL (1.9-2.7); Potassium 3.6 mmol/L (3.5-5.0); Sodium 132 mmol/L (135-145); Total Protein 7.7 g/dL (6.4-8.9)
[2021-02-13 19:27] LABS: TSH Ultra Thyroid Stim Horm 4.95 mcIU/mL (0.34-5.60)
[2021-02-13] MEDS ORDERED: Metoprolol Tartrate 5 mg VIAL 5 ml VIAL (1 mg/ml) IV ONE (19:40)
[2021-02-13 19:46] LABS: Urine Appearance Clear; Urine Bilirubin Negative (Negative); Urine Blood Negative (Negative); Urine Color Straw; Urine Glucose Negative (Negative); Urine Ketones Trace (Negative); Urine Nitrite Negative (Negative); Urine Protein Negative (Negative); Urine Specific Gravity 1.008 (1.010-1.030); Urine Urobilinogen Negative (Negative)
[2021-02-13] MEDS ORDERED: Nebivolol 5 mg TAB (NF) PO SCH (20:00)
[2021-02-13] MEDS: CMC:Nebivolol 2.5 mg TAB (NF) PO SCH (20:31)
[2021-02-13] MEDS ORDERED: Lorazepam PYXIS KEY PRN (20:49)
[2021-02-13] MEDS ORDERED: LORazepam 2 mg VIAL 1 ml IV PUSH ONE (20:49)
[2021-02-13] MEDS ORDERED: Lorazepam PYXIS KEY ONE (20:53)
[2021-02-13] MEDS ORDERED: Magnesium Sulfate 2 gm BAG 2 GM/50 ML BAG IVPB ONE (21:18)
[2021-02-13 21:55] LABS: Alcohol, S < 10 mg/dL (<10)
[2021-02-13] MEDS ORDERED: Thiamine 100 MG/ML 2 ml VIAL (200 mg) IM ONE (22:06)
[2021-02-13] MEDS ORDERED: Enoxaparin 40 MG/0.4 ML SYR SUBCUT SCH (23:00)
[2021-02-13 23:28] LABS: Vitamin B12 847 pg/mL (180-914)
[2021-02-14] MEDS: Multivitamins/Minerals TAB PO SCH ×2 (00:27→09:37)
[2021-02-14] MEDS ORDERED: Iohexol 350 (CONTRAST) 500 ML MDV IV ONE (01:18)
[2021-02-14 05:01] LABS: Potassium 3.5 mmol/L (3.5-5.0)
[2021-02-14 05:07] LABS: BUN/Creatinine Ratio 12.2 (8-20); EGFR African American 91.8 (>60); EGFR Non-African American 75.9 (>60); HDL Cholesterol 67.3 mg/dL
[2021-02-14] MEDS ORDERED: Potassium Chlor 20 meq TAB.ER PO SCH (09:00)
[2021-02-14] MEDS: CMC:Nebivolol 2.5 mg TAB (NF) PO SCH (09:49)
[2021-02-14 10:04] LABS: Vitamin D Total 25(OH) 69.7 ng/mL (20-50)
[2021-02-14 10:25] LABS: Thyroid Peroxidase Antibodies 2.08 IU/mL (<9)
[2021-02-14 10:27] LABS: Magnesium 2.6 mg/dL (1.9-2.7)
[2021-02-14 10:33] LABS: C Reactive Protein 2.29 mg/L (<8.01)
[2021-02-14] MEDS ORDERED: Gadoteridol (CONTRAST) 279.3 MG/ML 10 ML IV ONE (15:02)
[2021-02-14 15:47] VITALS: BP 123/88
== END 2021-02-14 17:13 | disposition home or self-care (01) ==
LOC: ED 16:32 → MEDTELE 16:32
PROVIDERS: ADMIT Internal Medicine; ATTEND Internal Medicine

== ENCOUNTER 2021-10-23 11:08 | Inpatient (IN) ==
[~2021-10-23 11:08] MED LIST changes: -Buffered Lidocaine 0.9% SYRIN* 5 ML/SYR SYRINGE INTRADERM ONE; +Buffered Lidocaine 1% SYRIN 1 ml INTRADERM ONE; -Heparin VIAL(*) 5000 UNITS/ML VIAL (FIVE THOUSAND) ONE; +Lactated Ringers 1000 ml BAG 1,000 ML IV SCH; +Ropivacaine 5 MG/ML 20 ML VIAL 0.5% (100 MG) ONE; -Sodium Citrate/Citric Acid* 15 ML UDC ONE; -Sodium Citrate/Citric Acid* 15 ML UDC PO ONE
[2021-10-23] MEDS ORDERED: ceFAZolin 2 GM PREMIX 2 GM/50 ML BAG ONE (11:59)
[2021-10-23] MEDS ORDERED: fentaNYL 100 mcg/2 ml 50 MCG/ML VIAL ONE (12:52)
[2021-10-23] MEDS ORDERED: Dexamethasone IV 4 MG/ML VIAL 1 ml VIAL ONE ×2 (12:53→15:20)
[2021-10-23] MEDS ORDERED: Lidocaine 1% MPF 5 ML VIAL ONE (13:18)
[2021-10-23 13:26] LABS: INR 1.08 (0.86-1.15)
[2021-10-23] MEDS ORDERED: NICARDIPINE 20 MG/200 ML IV ONE (14:00)
[2021-10-23] MEDS ORDERED: Lidocaine 2% PF 5 ML VIAL ONE ×2 (14:00→16:07)
[2021-10-23] MEDS ORDERED: fentaNYL 250 mcg/5 ml 50 MCG/ML 5 ml VIAL (250 MCG) ONE (14:00)
[2021-10-23] MEDS ORDERED: HYDROmorphone 1 MG/1 ML SYRINGE ONE ×3 (14:00→17:08)
[2021-10-23] MEDS ORDERED: Rocuronium 50 mg VIAL 10 mg/ml 5 ml VIAL (50 mg) ONE (14:00)
[2021-10-23] MEDS ORDERED: [UNRECOGNIZED DRUG - OTHER] IV ONE (14:00)
[2021-10-23] MEDS ORDERED: Metoprolol Tartrate 5 mg VIAL 5 ml VIAL (1 mg/ml) ONE (14:19)
[2021-10-23] MEDS ORDERED: Ondansetron 4 mg VIAL 2 MG/ML 2 ml VIAL ONE (15:20)
[2021-10-23] MEDS ORDERED: Ondansetron 4 mg VIAL 2 MG/ML 2 ml VIAL IV PRN ×2 (15:39→17:15)
[2021-10-23] MEDS ORDERED: diPHENhydraMINE IV 50 MG/ML 1 ml VIAL (BENADRYL) IV PRN ×2 (15:39→17:15)
[2021-10-23] MEDS ORDERED: diPHENhydraMINE 25 mg TAB PO PRN (15:39)
[2021-10-23] MEDS ORDERED: Morphine 2 MG/ML SYRINGE IV PRN (15:39)
[2021-10-23] MEDS ORDERED: Lactulose 30 ml UDC PO PRN (15:39)
[2021-10-23] MEDS ORDERED: Ondansetron ODT 4 mg TAB 4 MG TAB PO PRN (15:39)
[2021-10-23] MEDS ORDERED: Magnesium Hydroxide LIQ 30 ML UDC PO PRN (15:39)
[2021-10-23] MEDS ORDERED: ceFAZolin 1 GM ADVAN 1 GM in NS 0.9% 50 ML 50 ML IVPB SCH (16:00)
[2021-10-23] MEDS ORDERED: Lactated Ringers 1000 ml BAG 1,000 ML IV SCH (16:00)
[2021-10-23] MEDS ORDERED: Esmolol 10 MG/ML 10 ML (100 mg) ONE (16:07)
[2021-10-23] MEDS ORDERED: Naloxone 4 mg VIAL 0.4 MG/ML 10 ml VIAL (4 mg) ONE (16:49)
[2021-10-23] MEDS: HYDROmorphone 1 MG/1 ML SYRINGE IV PRN ×5 (17:05→17:52)
[2021-10-23] MEDS ORDERED: hydrALAZINE 20 mg/ml 1 ML Vial IV ONE (17:05)
[2021-10-23] MEDS ORDERED: fentaNYL 100 mcg/2 ml 50 MCG/ML VIAL IV PRN (17:15)
[2021-10-23] MEDS ORDERED: DiMENhydriNATE IV 50 mg/ml 1 ml VIAL IV PUSH PRN (17:15)
[2021-10-23] MEDS ORDERED: Naloxone 0.4 mg VIAL 0.4 mg/ml 1 ml VIAL IV PRN (17:15)
[2021-10-23] MEDS: ceFAZolin 1 GM ADVAN 1 GM in NS 0.9% 50 ML 50 ML IVPB SCH (21:26)
[2021-10-23] MEDS: Magnesium Hydroxide LIQ 30 ML UDC PO SCH (21:30)
[2021-10-24] MEDS: ceFAZolin 1 GM ADVAN 1 GM in NS 0.9% 50 ML 50 ML IVPB SCH ×2 (05:43→15:37)
[2021-10-24 06:07] LABS: Hematocrit 30 % (35-47); Hemoglobin 9.9 g/dL (12.0-16.0); Mean Platelet Volume 6.8 fL (7.4-10.4); Platelet Count 115 10^3/uL (150-450)
[2021-10-24 06:26] LABS: Calcium 8.6 mg/dL (8.6-10.3); Potassium 4.4 mmol/L (3.5-5.0); eGFR CKD-EPI 66.8 (>60)
[2021-10-24] MEDS ORDERED: Potassium Chlor 20 meq TAB.ER PO SCH (09:00)
[2021-10-24] MEDS ORDERED: Nebivolol 2.5 mg TAB (NF) PO SCH (09:00)
[2021-10-24] MEDS ORDERED: Vitamin THERAPEUTIC TAB PO SCH (09:00)
[2021-10-24] MEDS: Magnesium Hydroxide LIQ 30 ML UDC PO SCH (09:31)
[2021-10-24 16:00] VITALS: BP 151/87
[2021-10-25] MEDS ORDERED: Pneumococcal Vac 23-Polyvalent IM ONE (09:00)
== END 2021-10-24 17:43 | disposition home or self-care (01) | DRG 470 ==
LOC: AA 11:08 → SSU 19:34
PROVIDERS: ADMIT Orthopaedic Surgery Adult Reconstructive Orthopaedic Surgery; ATTEND Orthopaedic Surgery Adult Reconstructive Orthopaedic Surgery